=== PATIENT | female | born 1995 | race Caucasian/White ===

== ENCOUNTER → 2018-04-26 | Outpatient (CLI) | payer BC ==
--- NOTE | 2018-04-26 16:36 | Diagnostic Imaging Report ---
INDICATION: survey. TECHNIQUE: Multiple Real-time grayscale images were obtained over the gravid uterus. COMPARISON: None. FINDINGS: There is a single live fetus in cephalic presentation. The heart rate was recorded at 161 BPM. The placenta is posterior. The amniotic fluid volume is normal. The survey demonstrates the kidneys, bladder, and stomach to be unremarkable. The brain is unremarkable. There is a three-vessel cord with normal insertion. The spine is unremarkable. The four-chamber heart view is not well visualized on today's study. Biometrical measurements are as follows: Biparietal 5.14 cm, age 21 weeks 5 days. Head circumference 19.09 cm, age 21 weeks 3 days. Abdominal circumference 15.63 cm, age 20 weeks 6 days. Femur length 3.67 cm, age 21 weeks 5 days. Sonographic estimate age: 21 weeks 3 days. Sonographic estimated date of delivery: 09/03/18. Estimated Weight: 408 gm (+/- 60 gm). LMP percentile: 80%. heart rate: 161 beats per minute. number: 1 of 1. IMPRESSION: There is a single live IUP at 21 weeks 3 days gestational age. The estimated date of confinement sonographically is 09/03/2018. The survey is unremarkable although the four-chamber heart view is not well seen on today's study. Followup could be performed. Dictated by: Dictated on workstation # [id number]
== END ==
LOC: RAD 14:00
PROVIDERS: ATTEND Obstetrics & Gynecology
DX: Z36.89 Encounter for other specified antenatal screening (principal); Z3A.21 21 weeks gestation of pregnancy
CPT/HCPCS: 76805

== ENCOUNTER 2018-05-06 17:20 | Outpatient (CLI) | payer BC ==
[~2018-05-06] VITALS: Ht 177.8 cm; Wt 87.1 kg
--- NOTE | 2018-05-06 17:25 | NUR ---
LORNA SALGUERO presented to unit via ambulation from ED, with c/o ABD PAIN. LORNA SALGUERO weighed, gowned, voided, and to bed. EFHM and TOCO applied, VS taken. LORNA SALGUERO oriented to bed controls, call light, TV, heat, and A/C controls.
[2018-05-06 18:15] VITALS: BP 121/65
[2018-05-06 18:24] LABS: BILIRUBIN,URINE NEGATIVE (NEGATIVE); CLARITY,URINE SLIGHTLY CLOUDY; COLOR,URINE YELLOW; GLUCOSE, URINE (UA) NEGATIVE (NEGATIVE); KETONES,URINE NEGATIVE (NEGATIVE); LEUKOCYTE ESTERASE ,URINE 2+ (NEGATIVE); NITRITE,URINE NEGATIVE (NEGATIVE); PH,URINE 6 (5-9); PROTEIN,URINE NEGATIVE (NEGATIVE); UROBILINOGEN,URINE NORMAL (NORMAL)
--- NOTE | 2018-05-06 18:30 | NUR ---
FHR baseline 135, accelerations noted, occasional variables. Overall reassuring for 22 weeks gestation. No ctx or irritability noted.
[2018-05-06 18:33] LABS: BACTERIA,URINE TRACE /HPF; WBC,URINE 0-2 /HPF
--- NOTE | 2018-05-06 18:53 | NUR ---
Dr. Fernandez called, notified of pt arrival, c/o pain under right rib cage. notified of VS, FHR, ctx pattern, UA, other assessment findings. Orders for Tylenol #3, then D/C pt to home.
[2018-05-06] MEDS ORDERED: APAP 300 MG/CODEINE 30 MG (TYLENOL #3) TAB PO ONE ×2 (19:00→19:45)
[2018-05-06 20:10] VITALS: BP 121/65
--- NOTE | 2018-05-06 20:10 | NUR ---
Pt given PO medication and discharge instructions. Pt discharged to home at this time
== END 2018-05-06 20:10 | disposition home or self-care (01) ==
LOC: WSo 17:20
PROVIDERS: ATTEND Obstetrics & Gynecology
DX: O99.89 Other specified diseases and conditions complicating pregnancy, childbirth and the puerperium (principal); R10.11 Right upper quadrant pain; Z3A.22 22 weeks gestation of pregnancy
CPT/HCPCS: 81000; 99213

== ENCOUNTER 2018-05-24 12:18 | Emergency (ER) | payer BC ==
[~2018-05-24] VITALS: Ht 177.8 cm; Wt 85.7 kg
--- NOTE | 2018-05-24 12:32 | ED Abdominal Pain ---
General Chief Complaint: nausea, vomiting, brief LUQ pain Stated Complaint: VOMITING; ABD PAIN Source of Information: Patient Exam Limitations: No Limitations History of Present Illness Date Seen by Provider: May 24, 2018 Time Seen by Provider: 12:32 23 y/o 6 months presents with N/V x5 today. Started after eating this morning, never had morning sickness issues. Had intermittent LUQ abd pain around the time of the vomiting. Told previously that she may have GB issues. She is feeling the baby move. Allergies and Home Medications Allergies Coded Allergies: No Known Drug Allergies (Unverified , 05/06/18) Home Medications No Active Prescriptions or Reported Meds Patient Home Medication List Home Medication List Reviewed: Yes Review of Systems Review of Systems Constitutional: No chills, No fever; weakness EENTM: No Blurred Vision, No Double Vision Respiratory: Denies Cough, Denies Shortness of Air Cardiovascular: Denies Chest Pain, Denies Edema Gastrointestinal: See HPI, Abdominal Pain (LUQ); Denies Diarrhea; Nausea, Vomiting Genitourinary: Denies Burning, Denies Drainage, Denies Frequency, Denies Flank Pain, Denies Hematuria Musculoskeletal: No back pain, No joint pain, No muscle pain Skin: No lesions, No rash Psychiatric/Neurological: Denies Numbness, Denies Tingling Past Ybsmwiu-Okrgya-Bimljo Hx Past Med/Social Hx: Reviewed Nursing Past Med/Soc Hx Patient Social History Recent Foreign Travel: No Immunizations Up To Date Date of Influenza Vaccine: Feb 03, 2018 Physical Exam Vital Signs Vital Signs - First Documented 05/24/18 12:28 Temp 97.5 Pulse 87 Resp 18 B/P (MAP) 119/57 (77) Pulse Ox 97 O2 Delivery Room Air Capillary Refill : Height/Weight/BMI Height: 5'10.00" Weight: 192lbs. 0.0oz. 87.785207as; 27.6 BMI Method: General Appearance: WD/WN, no apparent distress HEENT: PERRL/EOMI, other (mildly dry MM) Neck: non-tender, full range of motion, normal inspection Respiratory: chest non-tender, lungs clear, normal breath sounds, no respiratory distress, no accessory muscle use Cardiovascular: normal peripheral pulses, regular rate, rhythm, no edema, no gallop, no JVD, no murmur Gastrointestinal: normal bowel sounds, non tender, soft, no organomegaly, no pulsatile mass, mass (gravid uterus, FHT 120-130) Extremities: normal range of motion, no pedal edema Back: no CVA tenderness, no vertebral tenderness Skin: normal color, warm/dry Progress/Results/Core Measures Results/Orders Lab Results Laboratory Tests Test 05/24/18 12:30 05/24/18 12:45 Range/Units Urine Color YELLOW Urine Clarity CLEAR Urine pH 6.0 5-9 Urine Specific [place] 1.020 1.016-1.022 Urine Protein NEGATIVE NEGATIVE Urine Glucose (UA) NEGATIVE NEGATIVE Urine Ketones 3+ H NEGATIVE Urine Nitrite NEGATIVE NEGATIVE Urine Bilirubin NEGATIVE NEGATIVE Urine Urobilinogen 0.2 NORMAL MG/DL Urine Leukocyte Esterase NEGATIVE NEGATIVE Urine RBC (Auto) NEGATIVE NEGATIVE Urine RBC NONE /HPF Urine WBC 0-2 /HPF Urine Squamous Epithelial Cells 5-10 /HPF Urine Crystals NONE /LPF Urine Bacteria TRACE /HPF Urine Casts NONE /LPF Urine Mucus MODERATE H /LPF Urine Culture Indicated NO Urine Test POSITIVE NEGATIVE White Blood Count 13.1 H 4.3-11.0 10^3/uL Red Blood Count 4.29 L 4.35-5.85 10^6/uL Hemoglobin 13.4 11.5-16.0 G/DL Hematocrit 39 35-52 % Mean Corpuscular Volume 90 80-99 FL Mean Corpuscular Hemoglobin 31 25-34 PG Mean Corpuscular Hemoglobin Concent 35 32-36 G/DL Red Cell Distribution Width 12.9 10.0-14.5 % Platelet Count 232 130-400 10^3/uL Mean Platelet Volume 10.4 7.4-10.4 FL Neutrophils (%) (Auto) 89 H 42-75 % Lymphocytes (%) (Auto) 6 L 12-44 % Monocytes (%) (Auto) 4 0-12 % Eosinophils (%) (Auto) 0 0-10 % Basophils (%) (Auto) 1 0-10 % Neutrophils # (Auto) 11.6 H 1.8-7.8 X 10^3 Lymphocytes # (Auto) 0.8 L 1.0-4.0 X 10^3 Monocytes # (Auto) 0.5 0.0-1.0 X 10^3 Eosinophils # (Auto) 0.1 0.0-0.3 10^3/uL Basophils # (Auto) 0.0 0.0-0.1 10^3/uL Neutrophils % (Manual) 82 % Lymphocytes % (Manual) 5 % Monocytes % (Manual) 4 % Eosinophils % (Manual) 0 % Basophils % (Manual) 0 % Band Neutrophils 9 % Sodium Level 139 135-145 MMOL/L Potassium Level 3.6 3.6-5.0 MMOL/L Chloride Level 102 98-107 MMOL/L Carbon Dioxide Level 13 L 21-32 MMOL/L Anion Gap 24 H 5-14 MMOL/L Blood Urea Nitrogen 9 7-18 MG/DL Creatinine 0.68 0.60-1.30 MG/DL Estimat Glomerular Filtration Rate > 60 BUN/Creatinine Ratio 13 Glucose Level 94 70-105 MG/DL Calcium Level 9.1 8.5-10.1 MG/DL Corrected Calcium 9.3 8.5-10.1 MG/DL Total Bilirubin 0.5 0.1-1.0 MG/DL Aspartate Amino Transf (AST/SGOT) 18 5-34 U/L Alanine Aminotransferase (ALT/SGPT) 15 0-55 U/L Alkaline Phosphatase 108 40-136 U/L Total Protein 6.8 6.4-8.2 GM/DL Albumin 3.8 3.2-4.5 GM/DL Lipase 24 8-78 U/L My Orders Orders - VANESSA CAREY MD Hcg,Qualitative Urine (05/24/18 12:26) Ua Culture If Indicated (05/24/18 12:26) Comprehensive Metabolic Panel (05/24/18 12:38) Lipase (05/24/18 12:38) Saline Lock/Iv-Start (05/24/18 12:38) Cbc With Automated Diff (05/24/18 12:38) Ns Iv 1000 Ml (Sodium Chloride 0.9%) (05/24/18 12:45) Ondansetron Injection (Zofran Injectio (05/24/18 12:45) Ns Iv 1000 Ml (Sodium Chloride 0.9%) (05/24/18 12:40) Manual Differential (05/24/18 12:45) Ondansetron Injection (Zofran Injectio (05/24/18 15:30) Promethazine Injection (Phenergan Injec (05/24/18 16:00) Diphenhydramine Injection (Benadryl Inje (05/24/18 16:00) D5 Ns 1000 Ml Iv Solution (Dextrose 5%/0 (05/24/18 16:00) Diphenhydramine Injection (Benadryl Inje (05/24/18 16:15) Medications Given in ED Current Medications Medications Dose Ordered Sig/Kendell Route Start Time Stop Time Status Last Admin Dose Admin Diphenhydramine HCl 25 mg ONCE ONCE IVP 05/24/18 16:15 05/24/18 16:16 DC 05/24/18 16:11 25 MG Ondansetron HCl 4 mg ONCE ONCE IVP 05/24/18 12:45 05/24/18 12:46 DC 05/24/18 12:55 4 MG Ondansetron HCl 4 mg ONCE ONCE IVP 05/24/18 15:30 05/24/18 15:31 DC 05/24/18 15:27 4 MG Promethazine HCl 25 mg ONCE ONCE IVP 05/24/18 16:00 05/24/18 16:01 DC 05/24/18 16:02 25 MG Vital Signs/I&O 05/24/18 12:28 Temp 97.5 Pulse 87 Resp 18 B/P (MAP) 119/57 (77) Pulse Ox 97 O2 Delivery Room Air Progress Progress Note #1: Progress Note FHT 120-130. Treat with NS bolus 1 L, Zofran 4 mg IVP x1, check labs. Progress Note #2: Time: 15:20 Progress Note feeling "queazy" has tolerated PO challenge, will repeat zofran. Progress Note #3: Time: 15:47 Progress Note vomiting. Treat with Phenergan IV, benadryl IV, D5 NS. Progress Note #4: Time: 16:50 Progress Note Nausea has improved. Will attempt PO challenge. Progress Note #5: Time: 17:15 Progress Note feeling better, tolerates PO, would like to go home. Strict return precautions discussed. Departure Impression Primary Impression: Nausea and vomiting Additional Impression: Disposition: 01 HOME, SELF-CARE Condition: Improved Departure-Patient Inst. Decision time for Depature: 17:17 Referrals: NO,LOCAL PHYSICIAN (PCP/Family) Primary Care Physician Patient Instructions: Nausea and Vomiting of (DC) Add. Discharge Instructions: All discharge instructions reviewed with patient and/or family. Voiced understanding. Scripts Promethazine HCl (Phenergan) 25 Mg Supp.rect 25 MG RC Q6H PRN for NAUSEA/VOMITING-2ND LINE, #14 SUPP.RECT 0 Refills Prov: VANESSA CAREY MD 05/24/18 Ondansetron (Ondansetron Odt) 4 Mg Tab.rapdis 4 MG PO Q6H PRN for NAUSEA/VOMITING-1ST LINE, #14 TAB 0 Refills Prov: VANESSA CAREY MD 05/24/18 VANESSA CAREY MD May 24, 2018 12:32
[2018-05-24] MEDS ORDERED: NS IV 1000 ML 1,000 ML ONE (12:40)
[2018-05-24] MEDS ORDERED: NS IV 1000 ML 1,000 ML IV SCH (12:45)
[2018-05-24] MEDS ORDERED: ONDANSETRON 4 MG/2 ML (SDV) Z0FRAN IVP ONE ×2 (12:45→15:30)
[2018-05-24 13:04] LABS: HEMATOCRIT 39 % (35-52); HEMOGLOBIN 13.4 G/DL (11.5-16.0); MEAN CORPUSCULAR HEMOGLOBIN 31 PG (25-34); MEAN CORPUSCULAR HGB CONC 35 G/DL (32-36); MEAN CORPUSCULAR VOLUME 90 FL (80-99); RED CELL DISTRIBUTION WIDTH 12.9 % (10.0-14.5); WHITE BLOOD COUNT 13.1 10^3/uL (4.3-11.0)
[2018-05-24 13:05] LABS: BASOPHILS % (AUTO) 1 % (0-10); EOSINOPHILS # (AUTO) 0.1 10^3/uL (0.0-0.3); EOSINOPHILS % (AUTO) 0 % (0-10); LYMPHOCYTES # (AUTO) 0.8 X 10^3 (1.0-4.0); LYMPHOCYTES % (AUTO) 6 % (12-44); MEAN PLATELET VOLUME 10.4 FL (7.4-10.4); MONOCYTES # (AUTO) 0.5 X 10^3 (0.0-1.0); MONOCYTES % (AUTO) 4 % (0-12); NEUTROPHILS # (AUTO) 11.6 X 10^3 (1.8-7.8); NEUTROPHILS % (AUTO) 89 % (42-75); PLATELET COUNT 232 10^3/uL (130-400)
[2018-05-24 13:32] LABS: POTASSIUM 3.6 MMOL/L (3.6-5.0); SODIUM 139 MMOL/L (135-145)
[2018-05-24 13:33] LABS: ALANINE AMINOTRANSFERASE 15 U/L (0-55); ALKALINE PHOSPHATASE 108 U/L (40-136); BILIRUBIN,TOTAL 0.5 MG/DL (0.1-1.0); BUN/CREATININE RATIO 13; CALCIUM 9.1 MG/DL (8.5-10.1); CARBON DIOXIDE 13 MMOL/L (21-32); CHLORIDE 102 MMOL/L (98-107); CREATININE SERUM 0.68 MG/DL (0.60-1.30); GFR ESTIMATED > 60; GLUCOSE 94 MG/DL (70-105)
[2018-05-24 13:34] LABS: ALBUMIN 3.8 GM/DL (3.2-4.5); LIPASE 24 U/L (8-78); TOTAL PROTEIN 6.8 GM/DL (6.4-8.2)
[2018-05-24 13:46] LABS: BAND NEUTROPHILS 9 %; BASOPHILS % (MANUAL) 0 %; EOSINOPHILS % (MANUAL) 0 %; LYMPHOCYTES % (MANUAL) 5 %; MONOCYTES % (MANUAL) 4 %; NEUTROPHILS % (MANUAL) 82 %
[2018-05-24 14:15] LABS: CLARITY,URINE CLEAR; COLOR,URINE YELLOW; GLUCOSE, URINE (UA) NEGATIVE (NEGATIVE); PROTEIN,URINE NEGATIVE (NEGATIVE)
[2018-05-24 14:16] LABS: BACTERIA,URINE TRACE /HPF; BILIRUBIN,URINE NEGATIVE (NEGATIVE); KETONES,URINE 3+ (NEGATIVE); LEUKOCYTE ESTERASE ,URINE NEGATIVE (NEGATIVE); NITRITE,URINE NEGATIVE (NEGATIVE); UROBILINOGEN,URINE 0.2 MG/DL (NORMAL); WBC,URINE 0-2 /HPF
[2018-05-24 14:17] LABS: HCG,QUALITATIVE URINE POSITIVE (NEGATIVE)
[2018-05-24] MEDS ORDERED: D5 NS 1000 ML IV SOLUTION 1,000 ML IV SCH (16:00)
[2018-05-24] MEDS ORDERED: diphenhydrAMINE 50 MG/ML INJ (BENADRYL) IM ONE (16:00)
[2018-05-24] MEDS ORDERED: PROMETHAZINE INJ 25 MG/ML (PHENERGAN) AMP IVP ONE (16:00)
[2018-05-24] MEDS ORDERED: diphenhydrAMINE 50 MG/ML INJ (BENADRYL) IVP ONE (16:15)
[2018-05-24] MEDS ORDERED: PROM25SU43 RC (17:20)
[2018-05-24] MEDS ORDERED: ONDA4TAB11 PO (17:20)
[2018-05-24 17:32] VITALS: BP 123/81
== END 2018-05-24 17:30 | disposition home or self-care (01) ==
LOC: EDUNIT# 12:18 → ER FS 12:21
DX: O21.9 Vomiting of pregnancy, unspecified (principal); Z3A.00 Weeks of gestation of pregnancy not specified
CPT/HCPCS: 36415; 80053; 81000; 83690; 84703; 85007; 85027

== ENCOUNTER 2018-09-03 07:36 | Outpatient (CLI) | payer BC ==
[~2018-09-03] VITALS: Ht 177.8 cm; Wt 91.6 kg
--- NOTE | 2018-09-03 07:25 | NUR ---
LORNA SALGUERO presented to unit via AMBULATORY from ED, accompanied by S/O, with c/o POSS RUPTURED MEMBRANES. LORNA SALGUERO weighed, gowned, voided, and to bed. EFHM and TOCO applied, VS taken. LORNA SALGUERO oriented to bed controls, call light, TV, heat, and A/C controls.
[~2018-09-03 07:36] MED LIST: ONDA4TAB11 PO; PROM25SU43 RC
[2018-09-03 07:40] VITALS: BP 126/77
--- NOTE | 2018-09-03 07:45 | NUR ---
Dr. Mahoney on unit. Notified of pt arrival, presenting for suspected SROM at home around [id number] this am. updated on pt history, FHR, ctx pattern, SVE, nitrazine, VS. Orders rec'd for wet prep, fern test.
[2018-09-03] MEDS ORDERED: PREN-148 PO (07:49)
[2018-09-03 07:56] LABS: BILIRUBIN,URINE NEGATIVE (NEGATIVE); CLARITY,URINE VERY CLOUDY; COLOR,URINE YELLOW; GLUCOSE, URINE (UA) NEGATIVE (NEGATIVE); KETONES,URINE NEGATIVE (NEGATIVE); LEUKOCYTE ESTERASE ,URINE 1+ (NEGATIVE); NITRITE,URINE NEGATIVE (NEGATIVE); PH,URINE 6.5 (5-9); PROTEIN,URINE NEGATIVE (NEGATIVE); UROBILINOGEN,URINE NORMAL (NORMAL)
[2018-09-03 08:06] LABS: BACTERIA,URINE MODERATE /HPF
--- NOTE | 2018-09-03 08:48 | NUR ---
Dr. Mahoney called and , wet prep, fern results reported, updated on continued ctx's. Orders rec'd to started IV with D5LR @ 250ml/hr and CBC.
[2018-09-03] MEDS ORDERED: D5 LR IV SOLUTION 1,000 ML IV SCH (09:00)
[2018-09-03 09:17] LABS: BASOPHILS % (AUTO) 0 % (0-10); EOSINOPHILS # (AUTO) 0.1 10^3/uL (0.0-0.3); EOSINOPHILS % (AUTO) 2 % (0-10); HEMATOCRIT 37 % (35-52); HEMOGLOBIN 12.1 G/DL (11.5-16.0); LYMPHOCYTES # (AUTO) 1.7 X 10^3 (1.0-4.0); LYMPHOCYTES % (AUTO) 20 % (12-44); MEAN CORPUSCULAR HEMOGLOBIN 27 PG (25-34); MEAN CORPUSCULAR HGB CONC 33 G/DL (32-36); MEAN CORPUSCULAR VOLUME 82 FL (80-99); MEAN PLATELET VOLUME 11.7 FL (7.4-10.4); MONOCYTES # (AUTO) 0.8 X 10^3 (0.0-1.0); MONOCYTES % (AUTO) 9 % (0-12); NEUTROPHILS % (AUTO) 69 % (42-75); PLATELET COUNT 217 10^3/uL (130-400); RED CELL DISTRIBUTION WIDTH 14.1 % (10.0-14.5); WHITE BLOOD COUNT 8.7 10^3/uL (4.3-11.0)
[2018-09-03 09:20] VITALS: BP 119/79
--- NOTE | 2018-09-03 10:05 | NUR ---
Dr. Mahoney called and updated on latest SVE, ctx pattern, pt c/o stronger ctx. Orders rec'd for regular diet, keep monitoring for now and continue IV fluids.
[2018-09-03 12:10] VITALS: BP 124/77
--- NOTE | 2018-09-03 13:22 | NUR ---
Dr. Mahoney called with update on SVE, ctx pattern, IV fluids complete, pt feeling better and desires to go home if not in true labor. Discharge orders rec'd.
--- NOTE | 2018-09-03 13:40 | NUR ---
Discharge instructions explained to pt with copy provided to pt, emphasis on labor precautions. Pt verbalizes understanding of instructions and signs to verify. Denies questions or concerns at this time. Ambulates self off unit accompanied by S.O. to private vehicle with all personal belongings. NO s/s of distress noted.
[2018-09-05] MEDS ORDERED: Benzocaine/Menthol TP ×2 (22:20)
[2018-09-05] MEDS ORDERED: DOCU100C37 PO ×2 (22:20)
[2018-09-05] MEDS ORDERED: IBUP-844 PO ×2 (22:20)
[2018-09-05] MEDS ORDERED: DIBU30OI TOP ×2 (22:20)
[2018-09-05] MEDS ORDERED: ACHD5005 PO ×2 (22:20)
[2018-09-05] MEDS ORDERED: FERR325T18 PO ×2 (22:20)
--- NOTE | 2018-09-07 09:36 | Physician Query-Final Dx ---
CYNTHIA VO 09/07/18 0936: Clinic Account Progress/Dx Physician Query: Please give diagnosis Need dx and weeks of gestation. Date of Service Sep 03, 2018 at 07:36 YOMI STILL MD 09/07/18 1313: Clinic Account Progress/Dx DIAGNOSIS: Diagnosis false labor CYNTHIA VO Sep 07, 2018 09:36 YOMI STILL MD Sep 07, 2018 13:13
== END 2018-09-03 13:40 | disposition home or self-care (01) ==
LOC: WSo 07:36 → LDRP 07:36 → WSo 13:40
PROVIDERS: ATTEND Obstetrics & Gynecology
DX: O47.9 False labor, unspecified (principal)
CPT/HCPCS: 36415; 81000; 85025; 87088; 87210; 89060; 96360; 96361; 99214

== ENCOUNTER 2018-09-04 14:52 | Inpatient (IN) | payer BC, OTHER ==
[2018-09-04] VITALS (48 sets, daily range): BP systolic 119–147; BP diastolic 59–97
[~2018-09-04] VITALS: Ht 177.8 cm; Wt 91.6 kg
--- NOTE | 2018-09-04 14:50 | NUR ---
LORNA SALGUERO presented to unit via AMBULATORY from ED, accompanied by S/O AND VISITOR, with c/o CONTRACTIONS. LORNA SALGUERO weighed, gowned, voided, and to bed. EFHM and TOCO applied, VS taken. LORNA SALGUERO oriented to bed controls, call light, TV, heat, and A/C controls.
[~2018-09-04 14:52] MED LIST changes: +PREN-148 PO
[2018-09-04] MEDS: D5 LR IV SOLUTION 1,000 ML IV SCH ×2 (15:55→23:16)
[2018-09-04 16:07] LABS: BASOPHILS % (AUTO) 0 % (0-10); EOSINOPHILS # (AUTO) 0.1 10^3/uL (0.0-0.3); EOSINOPHILS % (AUTO) 1 % (0-10); HEMATOCRIT 36 % (35-52); LYMPHOCYTES # (AUTO) 1.8 X 10^3 (1.0-4.0); LYMPHOCYTES % (AUTO) 13 % (12-44); MEAN CORPUSCULAR HEMOGLOBIN 28 PG (25-34); MEAN CORPUSCULAR HGB CONC 33 G/DL (32-36); MEAN CORPUSCULAR VOLUME 82 FL (80-99); MEAN PLATELET VOLUME 11.4 FL (7.4-10.4); MONOCYTES # (AUTO) 1.3 X 10^3 (0.0-1.0); MONOCYTES % (AUTO) 9 % (0-12); NEUTROPHILS # (AUTO) 10.7 X 10^3 (1.8-7.8); NEUTROPHILS % (AUTO) 77 % (42-75); PLATELET COUNT 190 10^3/uL (130-400); RED CELL DISTRIBUTION WIDTH 13.8 % (10.0-14.5); WHITE BLOOD COUNT 13.8 10^3/uL (4.3-11.0)
[2018-09-04] MEDS ORDERED: SUFENTA 0.6MCG/ML BUPIVA 0.125 100 ML ONE (16:22)
[2018-09-04] MEDS ORDERED: fentaNYL INJECTION 100 MCG/2 ML AMP ONE (17:12)
[2018-09-04] MEDS ORDERED: OXYTOCIN/NORMAL SALINE 500 ML IV SCH (17:22)
[2018-09-04] MEDS ORDERED: LACTATED RINGERS 1,000 ML IV ONE (17:26)
[2018-09-04] MEDS ORDERED: NALOXONE 0.4 MG/ML 1 ML (NARCAN) VIAL IV PRN ×2 (17:30)
[2018-09-04] MEDS ORDERED: ONDANSETRON 4 MG/2 ML (SDV) Z0FRAN IV PRN (17:30)
[2018-09-04] MEDS ORDERED: METOCLOPRAMIDE INJ 10 MG/2 ML (REGLAN) IV PRN (17:30)
[2018-09-04] MEDS ORDERED: diphenhydrAMINE 50 MG/ML INJ (BENADRYL) IV PRN (17:30)
[2018-09-04] MEDS ORDERED: EPIDURAL (SUFENTA 0.6MCG/ML BUPIVA 0.125%) 100 ML BAG EPI PRN (17:30)
--- NOTE | 2018-09-04 18:33 | History & Physical-OB ---
OB - Chief Complaint & HPI Date/Time Date of Admission: Date of Admission: Sep 04, 2018 at 15:10 Date seen by a Provider: Sep 04, 2018 Time Seen by a Provider: 17:00 Chief Complaint/History OB-Reason for Admission/Chief: Onset of Labor Hx : 1 Hx Para: 0 Expected Date of Delivery: Sep 09, 2018 Gestational Age in Weeks: 39 Gestational Age in Days: 2 Admission Nurse Assessment Rev: Yes History of Labs see prenatals Allergies and Home Medications Allergies Coded Allergies: No Known Drug Allergies (Unverified , 05/06/18) Home Medications Vit #76/Iron,Carb/FA 1 Each Tablet, 1 EACH PO DAILY, (Reported) Patient Home Medication List Home Medication List Reviewed: Yes OB - History Hx of Present Care: Yes Ultrasounds: Normal mid trimester US Obstetrical Complications: None Medical Complications: None Obstetrical History Hx : 1 Hx Para: 0 Hx Total # of Abortions (Spona: 0 Delivery History Adverse Rxn to Tranfusion: No (N/A) Patient Past Medical History n/a Social History/Family History Recent Infectious Disease Expo: No Alcohol Use: Denies Use Recreational Drug Use: No 2nd Hand Smoke Exposure: No Immunizations Hepatitis A: No Hepatitis B: Yes Date of Influenza Vaccine: Feb 03, 2018 OB - Admission Exam Physical Exam Vitals: Vital Signs 09/04/18 09/04/18 17:21 17:46 Temp 99.6 Pulse 95 Resp 18 B/P (MAP) 133/82 (99) Pulse Ox 98 O2 Delivery Room Air HEENT: NCAT Heart: Rhythm Normal Lungs: Clear Abdomen: Gravid Extremities: Normal Reflexes: Normal Cervical Dilatation: 4cm Effacement: 75% Station: -1 Membranes: Intact Heart Rate: 130's Accelerations: Accelerations Present Decelerations: Early Decelerations Short Term Variability: Present Fpc Variability: Average (6-25) Contractions on Admission: < 5 Minutes Apart Intensity: Mild Labs Laboratory Tests Test 09/04/18 15:55 Range/Units White Blood Count 13.8 H 4.3-11.0 10^3/uL Red Blood Count 4.37 4.35-5.85 10^6/uL Hemoglobin 12.0 11.5-16.0 G/DL Hematocrit 36 35-52 % Mean Corpuscular Volume 82 80-99 FL Mean Corpuscular Hemoglobin 28 25-34 PG Mean Corpuscular Hemoglobin Concent 33 32-36 G/DL Red Cell Distribution Width 13.8 10.0-14.5 % Platelet Count 190 130-400 10^3/uL Mean Platelet Volume 11.4 H 7.4-10.4 FL Neutrophils (%) (Auto) 77 H 42-75 % Lymphocytes (%) (Auto) 13 12-44 % Monocytes (%) (Auto) 9 0-12 % Eosinophils (%) (Auto) 1 0-10 % Basophils (%) (Auto) 0 0-10 % Neutrophils # (Auto) 10.7 H 1.8-7.8 X 10^3 Lymphocytes # (Auto) 1.8 1.0-4.0 X 10^3 Monocytes # (Auto) 1.3 H 0.0-1.0 X 10^3 Eosinophils # (Auto) 0.1 0.0-0.3 10^3/uL Basophils # (Auto) 0.0 0.0-0.1 10^3/uL OB - Assessment/Plan/Diagnosis Assessment Assessment: active labor Admission Dx 23 yo @ 39.2 weeks Active labor GBS neg Admission Status: Inpatient Order (span 2 midnights) Reason for Inpatient Admission: Term active labor Plan Plan: Expectant Management BRITTANY MCCRACKEN DO Sep 04, 2018 18:33
[2018-09-04] MEDS ORDERED: ONDANSETRON 4 MG/2 ML (SDV) Z0FRAN ONE (20:02)
[2018-09-04] MEDS ORDERED: LIDOCAINE PF 2% 5 ML (XYLOCAINE) VIAL ONE (20:09)
[2018-09-04] MEDS ORDERED: BUPIVACAINE 0.25% 30 ML (SENSORCAINE) VIAL ONE (20:31)
[2018-09-04] MEDS ORDERED: PROMETHAZINE INJ 25 MG/ML (PHENERGAN) AMP ONE (21:49)
[2018-09-04] MEDS ORDERED: CATHETER FLUSH 10 ML SYR IV SCH (22:00)
[2018-09-04] MEDS ORDERED: PROMETHAZINE INJ 25 MG/ML (PHENERGAN) AMP IVP ONE (22:00)
[2018-09-05] VITALS (19 sets, daily range): BP systolic 111–159; BP diastolic 55–100
[2018-09-05] MEDS ORDERED: BUPIVACAINE 0.25% 30 ML (SENSORCAINE) VIAL ONE (02:56)
[2018-09-05] MEDS ORDERED: OXYTOCIN/NORMAL SALINE 500 ML IV SCH (04:21)
--- NOTE | 2018-09-05 04:28 | OB Labor & Delivery Record ---
L&D History Date of Service Date of Service: Sep 05, 2018 History Expected Date of Delivery: Sep 09, 2018 Gestational Age in Weeks: 39 Hx : 1 Hx Para: 0 Complications Events: Routine care Operative Indications (Cesarea: N/A-Vaginal Delivery Intrapartal Events: None L&D Stage1 Stage One Onset of Labor - Date: Sep 05, 2018 Monitors and Tracing Monitor Mode: External Heart Rate: 125 Station: -1 Chcf Variability: Average (6-10) Short Term Variability: Present Presentation: Vertex Vital Signs VS - Last 72 Hours, by Label 09/04/18 09/04/18 09/04/18 09/04/18 14:56 17:01 17:09 17:11 Temp 97.8 Pulse 75 98 74 90 Resp 18 18 18 18 B/P (MAP) 136/85 (102) 145/82 (103) 128/77 (94) 126/80 (95) Pulse Ox 97 99 O2 Delivery Room Air Room Air Room Air Room Air 09/04/18 09/04/18 09/04/18 09/04/18 17:15 17:19 17:21 17:24 Temp 99.6 Pulse 81 79 75 Resp 18 18 18 B/P (MAP) 128/75 (92) 127/77 (94) 125/74 (91) 124/74 (91) Pulse Ox 99 99 O2 Delivery Room Air Room Air Room Air 09/04/18 09/04/18 09/04/18 09/04/18 17:27 17:31 17:34 17:37 Pulse 91 114 93 89 Resp 18 18 18 18 B/P (MAP) 124/75 (91) 126/76 (93) 128/78 (95) 128/76 (93) Pulse Ox 99 98 98 O2 Delivery Room Air Room Air Room Air Room Air 09/04/18 09/04/18 09/04/18 09/04/18 17:40 17:43 17:46 17:50 Temp 99.8 Pulse 90 75 95 92 Resp 18 18 18 18 B/P (MAP) 133/73 (93) 130/79 (96) 133/82 (99) 135/84 (101) Pulse Ox 98 98 98 O2 Delivery Room Air Room Air Room Air Room Air 09/04/18 09/04/18 09/04/18 09/04/18 18:07 18:20 18:30 18:33 Pulse 95 82 95 74 Resp 18 18 18 18 B/P (MAP) 124/86 (99) 128/70 (89) 126/64 (84) 131/65 (87) Pulse Ox 98 84 84 99 O2 Delivery Room Air Room Air Room Air Room Air 09/04/18 09/04/18 09/04/18 09/04/18 18:36 18:39 18:42 18:45 Pulse 89 77 80 85 Resp 18 18 18 18 B/P (MAP) 127/65 (85) 128/72 (90) 122/66 (84) 122/64 (83) Pulse Ox 97 O2 Delivery Room Air Room Air Room Air Room Air 09/04/18 09/04/18 09/04/18 09/04/18 18:48 18:51 18:54 18:57 Pulse 91 106 106 86 Resp 18 18 18 18 B/P (MAP) 122/69 (86) 127/72 (90) 127/72 (90) 132/79 (96) Pulse Ox 98 98 O2 Delivery Room Air Room Air Room Air Room Air 09/04/18 09/04/18 09/04/18 09/04/18 19:00 19:15 19:30 19:45 Temp 98.4 Pulse 88 88 108 102 Resp 18 18 18 18 B/P (MAP) 127/78 (94) 119/59 (79) 145/97 (113) 144/73 (96) O2 Delivery Room Air Room Air Room Air Room Air 09/04/18 09/04/18 09/04/18 09/04/18 20:00 20:15 20:30 20:45 Pulse 86 72 73 76 Resp 18 18 18 18 B/P (MAP) 140/67 (91) 123/69 (87) 137/77 (97) 131/68 (89) Pulse Ox 100 100 100 O2 Delivery Room Air Room Air Room Air Room Air 09/04/18 09/04/18 09/04/18 09/04/18 21:00 21:15 21:30 21:45 Pulse 90 76 78 85 Resp 18 18 18 18 B/P (MAP) 141/64 (89) 131/70 (90) 127/67 (87) 136/75 (95) Pulse Ox 100 98 97 97 O2 Delivery Room Air Room Air Room Air Room Air 09/04/18 09/04/18 09/04/18 09/04/18 22:00 22:15 22:30 22:45 Pulse 81 100 85 86 Resp 18 18 18 18 B/P (MAP) 130/65 (86) 147/73 (97) 131/82 (98) 143/71 (95) Pulse Ox 97 100 100 100 O2 Delivery Room Air Room Air Room Air Room Air 09/04/18 09/04/18 09/04/18 09/04/18 23:00 23:15 23:30 23:45 Pulse 86 96 90 108 Resp 18 18 18 18 B/P (MAP) 130/74 (92) 133/71 (91) 135/77 (96) 136/80 (98) Pulse Ox 100 100 O2 Delivery Room Air Room Air Room Air Room Air 09/05/18 09/05/18 09/05/18 09/05/18 00:00 00:15 00:30 00:45 Temp 100.4 Pulse 80 75 77 73 Resp 18 18 18 18 B/P (MAP) 133/77 (95) 133/75 (94) 136/76 (96) 148/71 (96) O2 Delivery Room Air Room Air Room Air Room Air 09/05/18 09/05/18 09/05/18 09/05/18 01:00 01:15 01:30 01:45 Pulse 94 Resp 18 18 18 18 B/P (MAP) 125/61 (82) O2 Delivery Room Air Room Air Room Air Room Air 09/05/18 09/05/18 09/05/18 02:00 02:15 02:30 Pulse 79 84 103 Resp 18 18 18 B/P (MAP) 132/82 (99) 158/86 (110) 159/93 (115) O2 Delivery Room Air Room Air Room Air Rupture of Membranes Spontaneous Ruture of Membrane: No Amniotic Membrane Rupture Time: 1744 Amniotic Membrane Fluid Desc.: Clear Vaginal Bleeding Description: Normal Show Induction/Anesthesia Epidural Cath Placement - Time: 1707 Progress/Notes Patient progressed to complete and +1 station with no other augmentation than AROM. Epidural pain control was not consistent. Pudendal block done with 10 mL of 0.25 percent marcaine bilaterally in usual fashion L&D Stage2 Stage Two Stage II Date: Sep 05, 2018 Monitors and Tracing Monitor Mode: External Heart Rate: 125 Monitor Accelerations: Uniform Chcf Variability: Average (6-10) Short Term Variability: Present Position: Right Occiput Anterior Presentation: Vertex Cord Descript/Complications Cord Vessel Description: 3 Vessels Delivery Type Infant Delivery Method: Spontaneous Vaginal Anterior Shoulder: Left Episiotomy/Perineal Laceration Laceraction(s)/Extensions: Yes Episiotomy Description: Midline Degree (describe repair) midline episiotomy repaired using 3-0 and 2-0 vicryl suture in usual fashion Condition of Delivery 1 minute Comment: 8 5 minute Comment: 9 Notes Live male infant weigth 8 lbs 11 oz Condition of Infant Condition of : Living Exam: No Observed Abnormalities Resuscitation Resuscitation: N/A - Spontaneous Resp L&D Stage3 Stage Three Stage III Date: Sep 05, 2018 Pictocin Pitocin Administration mu/min: 4 Pitocin ml/hr: 4 Pitocin Administration Comment: 30 mu wide open at delivery of placenta Placenta Delivery Placenta Delivery: Spontaneous Delivery Summary Summary Estimated blood loss (mL): 400 Attending at delivery: Brittany Mccracken DO Condition of Delivery Examined: Cervix Examined, Uterus Explored Post Hemorrhage: No Condition of Mother stable Condition of Infant (s) stable BRITTANY MCCRACKEN DO Sep 05, 2018 04:28
[2018-09-05] MEDS ORDERED: DIBUCAINE (NUPERCAINAL) 1% OINT 30 GM TOP PRN (04:30)
[2018-09-05] MEDS ORDERED: WITCH HAZEL(TUCKS) 40 EA JAR TOP PRN (04:30)
[2018-09-05] MEDS ORDERED: MEASLES,MUMPS,RUBELLA 1 EA INJ SQ ONE (04:30)
[2018-09-05] MEDS ORDERED: BENZOCAINE/MENTHOL (DERMOPLAST) 56 ML CAN TP PRN (04:30)
[2018-09-05] MEDS ORDERED: TETANUS,DIPTH,PERTUSS P/F (BOOSTRIX) 0.5 ML VIAL IM ONE (04:30)
[2018-09-05] MEDS ORDERED: HYDROcodone/APAP 5 MG/325 MG (LORTAB) TAB PO PRN (04:30)
--- NOTE | 2018-09-05 05:15 | NUR ---
Epidural cath removed, tip in tact, site wnl and left o/a. Asymptomatic per pt report. Pt up to bathroom, pericare pads changed. Pt unable to void at this time. No void since cath removal/delivery. Will cont to monitor output. Pt to room 309 pp dept via wc per this rn. Pt remains under this rns care.
--- NOTE | 2018-09-05 05:30 | NUR ---
Cold tray provided upon pt request, education on feeding, feeding log, sleeping, id band and clothing protocols. understanding voiced per parents. eagerly at this time. no ss distress noted. Patient denies needing pain medication at this time and will ring when motrin is desired.
[2018-09-05] MEDS ORDERED: CATHETER FLUSH 10 ML SYR IV SCH (06:00)
--- NOTE | 2018-09-05 06:30 | NUR ---
pt reports difficulty getting to feed, shield provided, diaper changed per for and handed to pt for feeding, nipple shield applied, latched with rhythmic sucking noted. will cont to monitor.
[2018-09-05] MEDS: PRENATAL VITAMIN 1 EA TAB PO SCH (09:18)
[2018-09-05] MEDS: FERROUS SULF 325 MG (IRON) TAB PO SCH (09:18)
[2018-09-05] MEDS: DOCUSATE SODIUM 100 MG (COLACE) CAP PO SCH ×2 (09:18→22:03)
--- NOTE | 2018-09-05 09:20 | NUR ---
THIS RN TO BEDSIDE, PT IN BED, RESTING. VS OBTAINED. INITIAL SHIFT ASSESSMENT COMPLETED; SEE INTERVENTION FOR FURTHER. MEDS GIVEN; SEE EMAR. PT REFUSING THE MOTRIN AT THIS TIME. S/O AT THE BEDSIDE. CALL LIGHT WITHIN REACH. POC FOR THE DAY REVIEWED, PT VERBALIZES UNDERSTANDING AND DENIES ANY NEEDS OR QUESTIONS AT THIS TIME.
[2018-09-05] MEDS: IBUPROFEN 600 MG (MOTRIN) TAB PO SCH ×4 (09:42→22:04)
--- NOTE | 2018-09-05 09:44 | NUR ---
MMR AND TDAP REFUSED ON EMAR PT DOES NOT QUALIFY OR NEED EITHER VACCINES.
--- NOTE | 2018-09-05 11:30 | NUR ---
THIS RN ROUNDING ON PT. PT IN BED. S/O AND VISITORS AT THE BEDSIDE. PT DENIES ANY NEEDS AT THIS TIME. STORK TABLE REMOVED FROM ROOM.
--- NOTE | 2018-09-05 13:10 | NUR ---
PT IN BED, HOLDING . PT VOICES THAT SHE JUST FINISHED FEEDING. S/O AT THE BEDSIDE. VS OBTAINED. PT DENIES ANY NEEDS OR PAIN AT THIS TIME. CALL LIGHT WITHIN REACH.
--- NOTE | 2018-09-05 15:21 | Anesthesia-Regional Post-Op ---
Regional Patient Condition Mental Status: Alert, Oriented x3 Circulation: Same as Pre-Op Headache: Absent Sensation: Full Recovery Motor Block: Absent Post Op Complications Complications None Follow Up Care/Instructions Patient Instructions None needed. Anesthesia/Patient Condition Patient is doing well, no complaints, stable vital signs, no apparent adverse anesthesia problems. LAY BESS DO Sep 05, 2018 15:21
--- NOTE | 2018-09-05 16:00 | NUR ---
PT UP TO THE BATHROOM. S/O AND INFANT AT THE BEDSIDE, NO NEEDS VOICED.
--- NOTE | 2018-09-05 16:45 | NUR ---
PT IN BED. VS OBTAINED. VISITORS AT THE BEDSIDE. IV DC'D; SEE INTERVENTION FOR FURTHER. NO NEEDS OR PAINS VOICED AT THIS TIME.
--- NOTE | 2018-09-05 18:45 | NUR ---
PT IN BED, FEEDING FINISHED BUT REMAINS FUSSY, PREPPING TO FEED AGAIN. NO NEEDS OR PAIN VOICED. CALL LIGHT WITHIN REACH.
--- NOTE | 2018-09-05 22:17 | Discharge Inst-Women's Service ---
Discharge Inst-Women's Serv Depart Medication/Instructions New, Converted or Re-Newed RX: RX on Chart Final Diagnosis PPD 1 NVD Consults/Follow Up Additional Follow Up: Yes Orders/Referrals Dr. Mccracken in 6 weeks Activity Activity: Activity as Tolerated Driving Instructions: No Driving for 1 Week NO SMOKING: NO SMOKING Nothing Inside Vagina: No Douching, No [place], No Tampons Diet Discharge Diet: No Restrictions Symptoms to Report to : Bleeding Excessive, Pain Increased, Fever Over 101 Degrees F, Vaginal Bleeding Increase, Questions/Concerns BRITTANY MCCRACKEN DO Sep 05, 2018 22:17
[2018-09-05] MEDS ORDERED: ACHD5005 PO ×2 (22:20)
[2018-09-05] MEDS ORDERED: DIBU30OI TOP ×2 (22:20)
[2018-09-05] MEDS ORDERED: FERR325T18 PO ×2 (22:20)
[2018-09-05] MEDS ORDERED: Benzocaine/Menthol TP ×2 (22:20)
[2018-09-05] MEDS ORDERED: DOCU100C37 PO ×2 (22:20)
[2018-09-05] MEDS ORDERED: IBUP-844 PO ×2 (22:20)
[2018-09-06 00:05] VITALS: BP 119/59
[2018-09-06 04:30] VITALS: BP 117/72
[2018-09-06 06:01] LABS: BASOPHILS % (AUTO) 0 % (0-10); EOSINOPHILS # (AUTO) 0.2 10^3/uL (0.0-0.3); EOSINOPHILS % (AUTO) 1 % (0-10); HEMATOCRIT 27 % (35-52); LYMPHOCYTES # (AUTO) 2.9 X 10^3 (1.0-4.0); LYMPHOCYTES % (AUTO) 21 % (12-44); MEAN CORPUSCULAR HEMOGLOBIN 28 PG (25-34); MEAN CORPUSCULAR HGB CONC 33 G/DL (32-36); MEAN CORPUSCULAR VOLUME 84 FL (80-99); MEAN PLATELET VOLUME 11.2 FL (7.4-10.4); MONOCYTES # (AUTO) 1.2 X 10^3 (0.0-1.0); MONOCYTES % (AUTO) 9 % (0-12); NEUTROPHILS # (AUTO) 9.5 X 10^3 (1.8-7.8); NEUTROPHILS % (AUTO) 69 % (42-75); PLATELET COUNT 165 10^3/uL (130-400); RED CELL DISTRIBUTION WIDTH 14.1 % (10.0-14.5); WHITE BLOOD COUNT 13.8 10^3/uL (4.3-11.0)
--- NOTE | 2018-09-06 07:46 | Postpartum Progress Note ---
Note Note Day # 1 Subjective: Patient is without complaints. Ambulating, voiding. Tolerating a regular diet without nausea or vomiting. Normal lochia. Pain is well controlled with oral pain medications. Objective: Physical Exam: General - Alert and oriented, no apparent distress Abdomen - Soft, appropriately tender to palpation, non-distended, fundus firm at umbilicus Extremities - no edema, negative Isaak's bilaterally Assessment: PPD 1 NVD Acute blood loss anemia Plan: Routine care. Encourage breast feeding. Encourage ambulation. Ferrous sulfate supplementation. Plan for discharge today Vitals - Labs Vital Signs - I&O Vital Signs Date Time Temp Pulse Resp B/P (MAP) Pulse Ox O2 Delivery O2 Flow Rate FiO2 09/06/18 04:30 97.1 78 18 117/72 (87) 97 Room Air 09/06/18 00:05 98.3 87 18 119/59 (79) 97 09/05/18 19:20 100.0 86 18 117/68 (84) 99 09/05/18 16:41 99.4 97 18 121/61 (81) 98 Room Air 09/05/18 13:09 99.7 86 18 115/62 (79) 98 Room Air 09/05/18 09:17 100.3 88 18 118/58 (78) 97 Room Air Labs Laboratory Tests 09/06/18 05:50: White Blood Count 13.8H, Red Blood Count 3.21L, Hemoglobin 9.0#L, Hematocrit 27L , Mean Corpuscular Volume 84, Mean Corpuscular Hemoglobin 28, Mean Corpuscular Hemoglobin Concent 33, Red Cell Distribution Width 14.1, Platelet Count 165, Mean Platelet Volume 11.2H, Neutrophils (%) (Auto) 69, Lymphocytes (%) (Auto) 21, Monocytes (%) (Auto) 9, Eosinophils (%) (Auto) 1, Basophils (%) (Auto) 0, Neutrophils # (Auto) 9.5H, Lymphocytes # (Auto) 2.9, Monocytes # (Auto) 1.2H, Eosinophils # (Auto) 0.2, Basophils # (Auto) 0.0 BRITTANY MCCRACKEN DO Sep 06, 2018 07:46
--- NOTE | 2018-09-06 08:00 | NUR ---
CARING FOR INFANT IN ROOM.
[2018-09-06 09:00] VITALS: BP 127/77
--- NOTE | 2018-09-06 09:00 | NUR ---
A.M. ASSESSMENT COMPLETED. VSS. WELL. GOOD INTERACTION NOTED.
[2018-09-06] MEDS: DOCUSATE SODIUM 100 MG (COLACE) CAP PO SCH (09:18)
[2018-09-06] MEDS: FERROUS SULF 325 MG (IRON) TAB PO SCH (09:18)
[2018-09-06] MEDS: IBUPROFEN 600 MG (MOTRIN) TAB PO SCH ×2 (09:18→15:38)
[2018-09-06] MEDS: PRENATAL VITAMIN 1 EA TAB PO SCH (09:18)
--- NOTE | 2018-09-06 10:00 | NUR ---
DR. GRAHAM HERE TO SEE INFANT. TALKING WITH PARENTS ABOUT NEED FOR SNS AND PHOTOTHERAPY.
--- NOTE | 2018-09-06 12:00 | NUR ---
DISCHARGE INSTRUCTIONS REVIEWED WITH COPY TO PT. STATES UNDERSTANDING OF ALL INSTRUCTIONS AND NEED TO F/U SCHEDULED AND NEEDED. RXS GIVEN TO PT TO HAVE A FAMILY MEMBER GET THEM FILLED. WILL NOT DISCHARGE UNTIL RXS ARE FILLED R/T PT BECOMING A ROOMING-IN PARENT.
--- NOTE | 2018-09-06 14:00 | NUR ---
CARING FOR INFANT IN ROOM.
[2018-09-06 15:00] VITALS: BP 118/70
[2018-09-06 16:00] VITALS: BP 118/70
--- NOTE | 2018-09-06 16:00 | NUR ---
DISMISSED FROM WS TO ROOMING-IN PARENT IN STABLE CONDITION. REMAINS A PT IN THE HOSPITAL.
== END 2018-09-06 16:00 | disposition home or self-care (01) | DRG 806 ==
LOC: WSo 14:52 → LDRP 14:52 → WSo 15:09 → LDRP 15:10
PROVIDERS: ADMIT Obstetrics & Gynecology; ATTEND Obstetrics & Gynecology
PROC: 10E0XZZ Delivery of Products of Conception, External Approach (ICD-10-PCS; principal; 2018-09-05)
PROC: 0W8NXZZ Division of Female Perineum, External Approach (ICD-10-PCS; 2018-09-05)
DX: O90.81 Anemia of the puerperium (principal); D62 Acute posthemorrhagic anemia; Z37.0 Single live birth; Z3A.39 39 weeks gestation of pregnancy
CPT/HCPCS: 36415; 85025; 86850; 86900; 86901; 99212

== ENCOUNTER → 2020-12-13 | Outpatient (CLI) | payer BC, OTHER ==
[~2020-12-13] MED LIST changes: +ACHD5005 PO; +Benzocaine/Menthol TP; +DIBU30OI TOP; +DOCU100C37 PO; +FERR325T18 PO; +IBUP-844 PO
--- NOTE | 2020-12-13 11:54 | Diagnostic Imaging Report ---
INDICATION: survey. TECHNIQUE: Multiple real-time grayscale images were obtained over the gravid uterus. COMPARISON: None FINDINGS: There is a single live fetus in a cephalic presentation. heart rate was recorded at 150 bpm. Placenta is anterior. MIP fluid index is 22 cm. Cervical length is 4.6 cm. Left kidney does show some minimal prominence of the renal pelvis measuring 4 mm. bladder and stomach are unremarkable. The brain is unremarkable. There is a four-chamber heart. There is a three-vessel cord with normal insertion. spine imaging is somewhat limited due to position. Biometrical measurements are as follows: Biparietal 7.21 cm, age 29 weeks 0 days. Head circumference 25.92 cm, age 28 weeks 2 days. Abdominal circumference 23.65 cm, age 28 weeks 0 days. Femur length 5.22 cm, age 27 weeks 6 days. Sonographic estimate age: 28 weeks 2 days. Sonographic estimated date of delivery: 03/05/2021. Estimated Weight: 1159 gm (+/- 169 gm). LMP percentile: ???%. heart rate: 150 beats per minute. number: 1 of 1. IMPRESSION: Single live IUP 28 weeks 2 days gestational age with estimated date of confinement sonographically of 03/05/2021. Dictated by: Dictated on workstation # [id number]
== END ==
LOC: RAD 10:00
PROVIDERS: ATTEND Obstetrics & Gynecology
DX: Z34.03 Encounter for supervision of normal first pregnancy, third trimester (principal); Z3A.28 28 weeks gestation of pregnancy
CPT/HCPCS: 76805

== ENCOUNTER 2021-02-25 11:28 | Inpatient (IN) | payer BC ==
[~2021-02-25] VITALS: Ht 177.8 cm; Wt 98.4 kg
[2021-02-25] VITALS (8 sets, daily range): BP systolic 85–139; BP diastolic 50–85
[2021-02-25] MEDS ORDERED: NS IV 500 ML 500 ML IV ONE (12:15)
[2021-02-25 12:29] LABS: BASOPHILS % (AUTO) 0 % (0-10); EOSINOPHILS # (AUTO) 0.1 10^3/uL (0.0-0.3); EOSINOPHILS % (AUTO) 1 % (0-10); HEMATOCRIT 35 % (35-52); HEMOGLOBIN 12.2 g/dL (11.5-16.0); LYMPHOCYTES # (AUTO) 1.4 10^3/uL (1.0-4.0); LYMPHOCYTES % (AUTO) 21 % (12-44); MEAN CORPUSCULAR HEMOGLOBIN 30 pg (25-34); MEAN CORPUSCULAR HGB CONC 35 g/dL (32-36); MEAN CORPUSCULAR VOLUME 86 fL (80-99); MONOCYTES # (AUTO) 0.6 10^3/uL (0.0-1.0); MONOCYTES % (AUTO) 8 % (0-12); NEUTROPHILS # (AUTO) 4.8 10^3/uL (1.8-7.8); NEUTROPHILS % (AUTO) 70 % (42-75); PLATELET COUNT 208 10^3/uL (130-400); WHITE BLOOD COUNT 6.9 10^3/uL (4.3-11.0)
[2021-02-25 12:39] LABS: ALBUMIN 3.1 GM/DL (3.2-4.5); POTASSIUM 2.7 MMOL/L (3.6-5.0)
[2021-02-25 12:40] LABS: CALCIUM 8.8 MG/DL (8.5-10.1)
[2021-02-25 12:43] LABS: BILIRUBIN,TOTAL 0.8 MG/DL (0.1-1.0)
[2021-02-25 12:45] LABS: CREATININE SERUM 0.7 MG/DL (0.60-1.30)
[2021-02-25 12:48] LABS: URIC ACID 5.4 MG/DL (2.6-7.2)
[2021-02-25] MEDS: D5 LR IV SOLUTION 1,000 ML IV SCH ×2 (12:51→19:18)
[2021-02-25] MEDS: POTASSIUM CL 10MEQ/50ML IVPB 50 ML IV SCH ×4 (14:36→19:41)
--- NOTE | 2021-02-25 16:27 | Diagnostic Imaging Report ---
INDICATION: Maternal hypotension. TECHNIQUE: Multiple Real-time grayscale images were obtained over the gravid uterus. COMPARISON: 12/13/2020. FINDINGS: There is a single live fetus in cephalic presentation. The heart rate was recorded at 127 BPM. The amniotic fluid volume is elevated at approximately 32 mL. The biophysical profile score is normal at 8 out of 8. Biometrical measurements are as follows: Biparietal 9.88 cm, age 40 weeks 4 days. Head circumference 37.14 cm, age weeks days. Abdominal circumference 35.58 cm, age 39 weeks 4 days. Femur length 7.26 cm, age 37 weeks 2 days. Sonographic estimate age: 39 weeks 1 days. Sonographic estimated date of delivery: 03/03/2021. Estimated Weight: 3859 gm (+/- 564 gm). LMP percentile: 85%. heart rate: 127 beats per minute. number: 1 of 1. IMPRESSION: Single live IUP of approximately 39 weeks gestational age showing normal interval growth when compared with the prior ultrasound. The biophysical profile score is normal at 8 out of 8. Note is made of an elevated amniotic fluid volume of 32 cm, consistent with polyhydramnios. Dictated by: Dictated on workstation # [id number]
[2021-02-25] MEDS ORDERED: TERBUTALINE INJ 1 MG/ML (BRETHINE) AMP SC PRN (18:00)
[2021-02-25] MEDS ORDERED: FLU QUADRIvalent (3YOA+) 60 mcg/0.5 ml 2021-22(AFLURIA) IM ONE (18:45)
[2021-02-26] VITALS (59 sets, daily range): BP systolic 106–164; BP diastolic 58–91
[2021-02-26] MEDS: D5 LR IV SOLUTION 1,000 ML IV SCH ×2 (03:19→10:21)
--- NOTE | 2021-02-26 08:47 | History & Physical-OB ---
OB - Chief Complaint & HPI Date/Time Date of Admission: Date of Admission: Feb 25, 2021 at 5:04 pm Date seen by a Provider: Feb 26, 2021 Time Seen by a Provider: 07:15 Chief Complaint/History OB-Reason for Admission/Chief: Induction of Labor Hx : 2 Hx Para: 1 Expected Date of Delivery: Mar 05, 2021 Gestational Age in Weeks: 39 Gestational Age in Days: 0 Indication for induction: medical complication Other reason for admission: Patient sent from office yesterday after hypotensive/syncopal episode, followed by diaphoresis and decreased movement. At admission she was given IVF bolus, and hypotension resolved, however urine protein cr ratio was elevation, decision due to 39 weeks was made to deliver. Admission Nurse Assessment Rev: Yes Allergies and Home Medications Allergies Coded Allergies: No Known Drug Allergies (Unverified , 05/06/18) Patient Home Medication List Home Medication List Reviewed: Yes Dibucaine (Dibucaine) 30 Gm Oint, 0 GM TOP UD PRN for PAIN- SEE INSTRUCTIONS Prescribed by: BRITTANY MCCRACKEN on 09/05/182219 Docusate Sodium (Docusate Sodium) 100 Mg Capsule, 100 MG PO BID PRN for CONSTIPATION-1ST LINE Prescribed by: BRITTANY MCCRACKEN on 09/05/182219 Ferrous Sulfate (Ferrous Sulfate) 325 Mg Tablet, 325 MG PO DAILY Prescribed by: BRITTANY MCCRACKEN on 09/05/182219 Hydrocodone Bit/Acetaminophen (Lortab 5 Mg Tablet) 1 Tab Tab, 1 TAB PO Q4H PRN for PAIN-MODERATE Prescribed by: BRITTANY MCCRACKEN on 09/05/182219 Ibuprofen (Ibu) 600 Mg Tablet, 600 MG PO Q6HR Prescribed by: BRITTANY MCCRACKEN on 09/05/182219 Vit #76/Iron,Carb/FA (Pnv 29-1 Tablet) 1 Each Tablet, 1 EACH PO DAILY, (Reported) Entered as Reported by: TRES SMITH on 09/03/18 0749 [Benzocaine/Menthol] 56 ML AEROSOL, 56 ML TP UD PRN for PAIN- SEE INSTRUCTIONS Prescribed by: BRITTANY MCCRACKEN on 09/05/182219 OB - History Hx of Present Care: Yes (late care) Ultrasounds: Normal mid trimester US Obstetrical Complications: None Medical Complications: None Delivery History Adverse Rxn to Tranfusion: No (N/A) Patient Past Medical History n/a Social History/Family History 2nd Hand Smoke Exposure: No Immunizations Influenza Vaccine Up-to-Date: No; Not Current First/Initial COVID19 Vaccine: July 2020 Second COVID19 Vaccination: Mid August 2020 COVID19 Vaccine Sound Tester: Bharathpadmaja Hepatitis A: Yes Hepatitis B: Yes OB - Admission Exam Physical Exam Vitals: Vital Signs 02/25/21 02/25/21 02/26/21 02/26/21 11:50 13:05 05:00 07:00 Temp 37.0 Pulse 87 Resp 18 B/P (MAP) 136/91 (106) Pulse Ox 100 O2 Delivery Room Air HEENT: NCAT Heart: Rhythm Normal Lungs: Clear Abdomen: Gravid Extremities: Normal Reflexes: Normal Cervical Dilatation: 2cm Effacement: 75% Station: -1 Membranes: Intact Heart Rate: 130's Accelerations: Accelerations Present Decelerations: No Decelerations Short Term Variability: Present Half-Way Variability: Average (6-25) Contractions on Admission: >10 Minutes Apart Intensity: Mild Labs Laboratory Tests Test 02/25/21 12:10 02/25/21 14:30 Range/Units White Blood Count 6.9 4.3-11.0 10^3/uL Red Blood Count 4.10 3.80-5.11 10^6/uL Hemoglobin 12.2 11.5-16.0 g/dL Hematocrit 35 35-52 % Mean Corpuscular Volume 86 80-99 fL Mean Corpuscular Hemoglobin 30 25-34 pg Mean Corpuscular Hemoglobin Concent 35 32-36 g/dL Red Cell Distribution Width 12.9 10.0-14.5 % Platelet Count 208 130-400 10^3/uL Mean Platelet Volume 12.0 9.0-12.2 fL Immature Granulocyte % (Auto) 0 % Neutrophils (%) (Auto) 70 42-75 % Lymphocytes (%) (Auto) 21 12-44 % Monocytes (%) (Auto) 8 0-12 % Eosinophils (%) (Auto) 1 0-10 % Basophils (%) (Auto) 0 0-10 % Neutrophils # (Auto) 4.8 1.8-7.8 10^3/uL Lymphocytes # (Auto) 1.4 1.0-4.0 10^3/uL Monocytes # (Auto) 0.6 0.0-1.0 10^3/uL Eosinophils # (Auto) 0.1 0.0-0.3 10^3/uL Basophils # (Auto) 0.0 0.0-0.1 10^3/uL Immature Granulocyte # (Auto) 0.0 0.0-0.1 10^3/uL Sodium Level 139 135-145 MMOL/L Potassium Level 2.7 L 3.6-5.0 MMOL/L Chloride Level 104 98-107 MMOL/L Carbon Dioxide Level 22 21-32 MMOL/L Anion Gap 13 5-14 MMOL/L Blood Urea Nitrogen 5 L 7-18 MG/DL Creatinine 0.70 0.60-1.30 MG/DL Estimat Glomerular Filtration Rate 100 BUN/Creatinine Ratio 7 Glucose Level 123 H 70-105 MG/DL Uric Acid 5.4 2.6-7.2 MG/DL Calcium Level 8.8 8.5-10.1 MG/DL Corrected Calcium 9.5 8.5-10.1 MG/DL Total Bilirubin 0.8 0.1-1.0 MG/DL Aspartate Amino Transf (AST/SGOT) 23 5-34 U/L Alanine Aminotransferase (ALT/SGPT) 16 0-55 U/L Alkaline Phosphatase 222 H 40-136 U/L Total Protein 6.0 L 6.4-8.2 GM/DL Albumin 3.1 L 3.2-4.5 GM/DL Urine Protein 147 H 6-12 MG/DL Urine Creatinine 105 30-125 MG/DL Urine Protein/Creatinine Ratio 1.40 OB - Assessment/Plan/Diagnosis Assessment Assessment: induction of labor Admission Dx 26 yo @ 39 weeks Mild preeclampsia s/p Syncopal hypotensive episode GBS neg Admission Status: Inpatient Order (span 2 midnights) Reason for Inpatient Admission: IOL at 39 weeks Plan Plan: Induction Induction Method: per Misoprostol Protocol BRITTANY MCCRACKEN DO Feb 26, 2021 8:47 am
[2021-02-26] MEDS ORDERED: OXYTOCIN PRE-MIX DRIP 500 ML IV SCH ×2 (09:00)
[2021-02-26] MEDS ORDERED: fentaNYL 2 mcg/ml BUPIVA 0.125 100 ML ONE (10:20)
[2021-02-26] MEDS ORDERED: fentaNYL INJ 100 MCG/2 ML AMP ONE (10:29)
[2021-02-26] MEDS ORDERED: BUPIVACAINE 0.25% 30 ML (SENSORCAINE) VIAL ONE (10:29)
[2021-02-26] MEDS: OXYTOCIN PRE-MIX DRIP 500 ML IV SCH ×2 (16:16→16:45)
[2021-02-26] MEDS ORDERED: DIBUCAINE 1% OINTMENT 30 GM TUBE TOP PRN (16:30)
[2021-02-26] MEDS ORDERED: TETANUS,DIPTH,PERTUSS P/F (BOOSTRIX) 0.5 ML VIAL IM ONE (16:30)
[2021-02-26] MEDS ORDERED: HYDROcodone/APAP 5 MG/325 MG (LORTAB) TAB PO PRN ×2 (16:30→16:45)
[2021-02-26] MEDS ORDERED: BENZOCAINE/MENTHOL (DERMOPLAST) 56 ML CAN TP PRN (16:30)
[2021-02-26] MEDS ORDERED: NALOXONE 0.4 MG/ML 1 ML (NARCAN) VIAL IV PRN (16:30)
[2021-02-26] MEDS ORDERED: MEASLES,MUMPS,RUBELLA 1 EA INJ SQ ONE (16:30)
[2021-02-26] MEDS ORDERED: WITCH HAZEL(TUCKS) 40 EA JAR TOP PRN (16:30)
--- NOTE | 2021-02-26 16:35 | OB Labor & Delivery Record ---
L&D History Date of Service Date of Service: Feb 26, 2021 History Expected Date of Delivery: Mar 05, 2021 Gestational Age in Weeks: 39 Hx : 2 Hx Para: 1 Complications Events: Routine care Operative Indications (Cesarea: N/A-Vaginal Delivery Intrapartal Events: Mild Preeclampsia L&D Stage1 Stage One Onset of Labor - Date: Feb 26, 2021 Monitors and Tracing Monitor Mode: External Heart Rate: 110 Monitor Decelerations: Variable Station: -2 Math Professor Variability: Average (6-10) Short Term Variability: Present Presentation: Vertex Vital Signs VS - Last 72 Hours, by Label 02/25/21 02/25/21 02/25/21 02/25/21 11:40 11:50 12:25 13:05 Temp 36.0 Pulse 130 118 86 98 Resp 18 18 B/P (MAP) 89/54 (66) 130/76 (94) 101/60 (74) Pulse Ox 99 98 100 100 O2 Delivery Room Air Room Air 02/25/21 02/25/21 02/25/21 02/25/21 14:40 16:15 22:00 23:00 Temp 35.6 36.7 36.5 Pulse 74 78 109 86 Resp 18 18 B/P (MAP) 139/82 (101) 135/81 (99) 138/85 (102) 133/77 (95) 02/26/21 02/26/21 02/26/21 02/26/21 00:00 01:00 02:00 03:00 Pulse 81 80 78 76 Resp 18 18 18 18 B/P (MAP) 124/61 (82) 117/68 (84) 133/85 (101) 113/58 (76) 02/26/21 02/26/21 02/26/21 02/26/21 04:00 05:00 06:00 07:00 Temp 36.8 37.0 Pulse 86 76 75 87 Resp 18 18 18 18 B/P (MAP) 130/80 (97) 126/80 (95) 130/84 (99) 136/91 (106) 02/26/21 02/26/21 02/26/21 02/26/21 07:20 08:00 08:20 09:15 Temp 36.4 Pulse 78 77 88 Resp 18 18 18 B/P (MAP) 131/81 (98) 140/87 (104) 139/91 (107) O2 Delivery Room Air Room Air Room Air 02/26/21 02/26/21 02/26/21 02/26/21 09:30 09:45 10:00 10:15 Pulse 73 77 73 75 Resp 18 18 18 18 B/P (MAP) 133/81 (98) 130/81 (97) 134/78 (96) 133/79 (97) O2 Delivery Room Air Room Air Room Air Room Air 02/26/21 02/26/21 02/26/21 02/26/21 10:30 10:40 10:45 10:50 Pulse 77 75 79 78 Resp 18 18 18 18 B/P (MAP) 138/86 (103) 128/72 (90) 129/76 (93) 132/84 (100) Pulse Ox 100 98 100 O2 Delivery Room Air Room Air Room Air Room Air 02/26/21 02/26/21 02/26/21 02/26/21 10:55 11:00 11:05 11:10 Pulse 95 125 86 71 Resp 18 18 18 18 B/P (MAP) 133/85 (101) 127/80 (96) 134/75 (94) 123/72 (89) Pulse Ox 100 100 98 98 O2 Delivery Room Air Room Air Room Air Room Air 02/26/21 02/26/21 02/26/21 02/26/21 11:15 11:20 11:25 11:30 Pulse 78 76 76 83 Resp 18 18 18 18 B/P (MAP) 127/73 (91) 121/74 (90) 129/76 (93) 135/61 (85) Pulse Ox 99 98 99 94 O2 Delivery Room Air Room Air Room Air Room Air 02/26/21 02/26/21 02/26/21 02/26/21 11:35 11:40 11:45 11:50 Pulse 67 65 65 71 Resp 18 18 18 18 B/P (MAP) 127/68 (87) 126/67 (86) 123/67 (85) 124/73 (90) Pulse Ox 100 98 100 99 O2 Delivery Room Air Room Air Room Air Room Air 02/26/21 02/26/21 02/26/21 02/26/21 12:00 12:15 12:30 12:45 Temp 36.1 Pulse 65 98 71 81 Resp 18 18 18 18 B/P (MAP) 123/67 (85) 116/65 (82) 106/61 (76) 125/70 (88) Pulse Ox 100 98 98 100 O2 Delivery Room Air Room Air Room Air Room Air 02/26/21 02/26/21 02/26/21 02/26/21 13:00 13:15 13:30 13:45 Pulse 64 73 66 66 Resp 18 18 18 18 B/P (MAP) 119/75 (90) 119/75 (90) 115/63 (80) 120/70 (87) Pulse Ox 99 100 98 99 O2 Delivery Room Air Room Air Room Air Room Air 02/26/21 02/26/21 02/26/21 14:00 14:15 14:30 Temp 36.5 Pulse 67 69 67 Resp 18 18 18 B/P (MAP) 115/70 (85) 121/67 (85) 121/68 (85) Pulse Ox 100 99 98 O2 Delivery Room Air Room Air Room Air Rupture of Membranes Spontaneous Ruture of Membrane: No Amniotic Membrane Rupture Time: 0709 Amniotic Membrane Fluid Desc.: Clear Vaginal Bleeding Description: Normal Show Induction/Anesthesia Epidural Cath Placement - Time: 1045 Progress/Notes Patient started on misoprostol PO overnight and converted to AROM and Pitocin this AM. Epidural received and she progressed to complete and +2 station. L&D Stage2 Stage Two Stage II Date: Feb 26, 2021 Monitors and Tracing Monitor Mode: External Heart Rate: 110 Monitor Decelerations: Variable Longterm Variability: Average (6-10) Short Term Variability: Present Position: Right Occiput Anterior Presentation: Vertex Cord Descript/Complications Cord Vessel Description: 3 Vessels Delivery Type Infant Delivery Method: Spontaneous Vaginal Anterior Shoulder: Left (compound presentation) Episiotomy/Perineal Laceration Laceraction(s)/Extensions: Yes Degree (describe repair) bilateral labial lacerations and 1st degree vaginal laceration repaired using 3- 0 rapide in usual fashion Condition of Infant Delivery 1 minute Comment: 8 5 minute Comment: 9 Notes Live male weight pending Condition of Condition of Infant: Living Exam: No Observed Abnormalities Resuscitation Resuscitation: N/A - Spontaneous Resp L&D Stage3 Stage Three Stage III Date: Feb 26, 2021 Pictocin Pitocin Administration mu/min: 8 Pitocin ml/hr: 8 Pitocin Administration Comment: 30 mu wide open after delivery of placenta Placenta Delivery Placenta Delivery: Spontaneous Delivery Summary Summary Estimated blood loss (mL): 350 Attending at delivery: Brittany Mccracken DO Condition of Delivery Examined: Cervix Examined, Uterus Explored Post Hemorrhage: No Condition of Mother stable Condition of Infant (s) stable BRITTANY MCCRACKEN DO Feb 26, 2021 4:35 pm
--- NOTE | 2021-02-26 17:34 | Diagnostic Imaging Report ---
REASON FOR EXAM: Evaluate for IUD. COMPARISON: None TECHNIQUE: frontal supine view of the abdomen FINDINGS: The bowel gas pattern is nondistended. No large collection of free intraperitoneal air is seen. Scattered small amounts of gas and fecal material are present in the colon. No abnormal extraosseous calcifications are present. An IUD is not identified. The osseous structures are age-appropriate. IMPRESSION: 1. No radiographic evidence of IUD. 2. No evidence of bowel obstruction or large collection of free intraperitoneal air. Dictated by: Dictated on workstation # [id number]
[2021-02-26] MEDS: IBUPROFEN 600 MG (MOTRIN) TAB PO SCH (18:25)
[2021-02-26] MEDS: DOCUSATE SODIUM 100 MG (COLACE) CAP PO SCH (19:44)
[2021-02-27 04:30] VITALS: BP 117/66
[2021-02-27] MEDS: IBUPROFEN 600 MG (MOTRIN) TAB PO SCH ×4 (05:43→19:13)
[2021-02-27 05:51] LABS: BASOPHILS % (AUTO) 0 % (0-10); EOSINOPHILS # (AUTO) 0.1 10^3/uL (0.0-0.3); EOSINOPHILS % (AUTO) 1 % (0-10); HEMATOCRIT 29 % (35-52); HEMOGLOBIN 9.9 g/dL (11.5-16.0); LYMPHOCYTES # (AUTO) 3.1 10^3/uL (1.0-4.0); LYMPHOCYTES % (AUTO) 23 % (12-44); MEAN CORPUSCULAR HEMOGLOBIN 30 pg (25-34); MEAN CORPUSCULAR HGB CONC 34 g/dL (32-36); MEAN CORPUSCULAR VOLUME 87 fL (80-99); MEAN PLATELET VOLUME 11.8 fL (9.0-12.2); MONOCYTES % (AUTO) 7 % (0-12); NEUTROPHILS # (AUTO) 9.2 10^3/uL (1.8-7.8); NEUTROPHILS % (AUTO) 68 % (42-75); PLATELET COUNT 175 10^3/uL (130-400); WHITE BLOOD COUNT 13.4 10^3/uL (4.3-11.0)
[2021-02-27 06:09] LABS: ALBUMIN 2.5 GM/DL (3.2-4.5); POTASSIUM 3.1 MMOL/L (3.6-5.0)
[2021-02-27 06:10] LABS: CALCIUM 8.3 MG/DL (8.5-10.1)
[2021-02-27 06:11] LABS: TOTAL PROTEIN 4.8 GM/DL (6.4-8.2)
[2021-02-27 06:13] LABS: BILIRUBIN,TOTAL 0.4 MG/DL (0.1-1.0)
[2021-02-27 06:15] LABS: CREATININE SERUM 0.69 MG/DL (0.60-1.30)
[2021-02-27] MEDS: FERROUS SULF 325 MG (IRON) TAB PO SCH (08:56)
[2021-02-27] MEDS: PRENATAL VITAMIN 1 EA TAB PO SCH (08:56)
[2021-02-27] MEDS: DOCUSATE SODIUM 100 MG (COLACE) CAP PO SCH ×2 (08:56→19:13)
[2021-02-27 08:58] VITALS: BP 119/71
--- NOTE | 2021-02-27 14:41 | Anesthesia-Regional Post-Op ---
Regional Patient Condition Mental Status: Alert, Oriented x3 Circulation: Same as Pre-Op Headache: Absent Sensation: Full Recovery Motor Block: Absent Post Op Complications Complications None Follow Up Care/Instructions Patient Instructions None needed. Anesthesia/Patient Condition Patient is doing well, no complaints, stable vital signs, no apparent adverse anesthesia problems. No complications reported per nursing. ERICK LOU CRNA Feb 27, 2021 14:41
[2021-02-27 16:34] VITALS: BP 138/82
--- NOTE | 2021-02-27 17:00 | Postpartum Progress Note ---
Note Note Day # 1 Subjective: Patient is without complaints. Ambulating, voiding. Tolerating a regular diet without nausea or vomiting. Normal lochia. Pain is well controlled with oral pain medications. Objective: Physical Exam: General - Alert and oriented, no apparent distress Abdomen - Soft, appropriately tender to palpation, non-distended, fundus firm at umbilicus Extremities - no edema, negative Isaak's bilaterally Assessment: Post- day # 1, status post vaginal delivery. Recovering well, hemodynamically stable Acute blood loss anemia Hypokalemia Plan: Routine care. Encourage breast feeding. Encourage ambulation. Ferrous sulfate supplementation. Plan for discharge tomorrow Vitals - Labs Vital Signs - I&O Vital Signs Date Time Temp Pulse Resp B/P (MAP) Pulse Ox O2 Delivery O2 Flow Rate FiO2 02/27/21 08:58 36.3 84 18 119/71 (87) 99 Room Air 02/27/21 04:30 36.2 83 18 117/66 (83) 99 Room Air 02/26/21 23:59 36.4 80 18 120/65 (83) 97 Room Air 02/26/21 21:45 36.8 104 18 133/63 (86) Room Air 02/26/21 18:15 112 18 122/67 (85) Room Air 02/26/21 18:00 98 18 121/62 (81) Room Air 02/26/21 17:45 96 18 131/67 (88) Room Air 02/26/21 17:30 99 18 120/66 (84) Room Air 02/26/21 17:15 104 18 124/65 (84) Room Air 02/26/21 17:00 114 18 117/62 (80) Room Air I & O 02/27/21 06:59 Intake Total 2000 ml Balance 2000 ml Labs Laboratory Tests 02/27/21 05:27: White Blood Count 13.4H, Red Blood Count 3.36L, Hemoglobin 9.9L, Hematocrit 29L, Mean Corpuscular Volume 87, Mean Corpuscular Hemoglobin 30, Mean Corpuscular Hemoglobin Concent 34, Red Cell Distribution Width 13.2, Platelet Count 175, Mean Platelet Volume 11.8, Immature Granulocyte % (Auto) 1, Neutrophils (%) (Auto) 68, Lymphocytes (%) (Auto) 23, Monocytes (%) (Auto) 7, Eosinophils (%) (Auto) 1, Basophils (%) (Auto) 0, Neutrophils # (Auto) 9.2H, Lymphocytes # (Auto) 3.1, Monocytes # (Auto) 1.0, Eosinophils # (Auto) 0.1, Basophils # (Auto) 0.0, Immature Granulocyte # (Auto) 0.1, Sodium Level 138, Potassium Level 3.1L, Chloride Level 107, Carbon Dioxide Level 21, Anion Gap 10, Blood Urea Nitrogen 6L, Creatinine 0.69, Estimat Glomerular Filtration Rate 102, BUN/Creatinine Ratio 9, Glucose Level 78, Calcium Level 8.3L, Corrected Calcium 9.5, Total Bilirubin 0.4, Aspartate Amino Transf (AST/SGOT) 29, Alanine Aminotransferase (ALT/SGPT) 16, Alkaline Phosphatase 188H, Total Protein 4.8L, Albumin 2.5L YARELI WYNNE APRN Feb 27, 2021 17:00
[2021-02-27] MEDS: D5 LR IV SOLUTION 1,000 ML IV SCH ×2 (23:36→23:38)
[2021-02-27] MEDS: CATHETER FLUSH 10 ML SYR IV SCH ×2 (23:36→23:38)
[2021-02-28 00:31] VITALS: BP 126/71
[2021-02-28] MEDS: IBUPROFEN 600 MG (MOTRIN) TAB PO SCH ×2 (00:31→06:46)
[2021-02-28] MEDS: D5 LR IV SOLUTION 1,000 ML IV SCH (04:32)
[2021-02-28] MEDS: CATHETER FLUSH 10 ML SYR IV SCH (05:44)
[2021-02-28 06:45] VITALS: BP 130/80
[2021-02-28] MEDS: PRENATAL VITAMIN 1 EA TAB PO SCH (06:46)
--- NOTE | 2021-02-28 08:09 | Discharge Inst-Women's Service ---
Discharge Inst-Women's Serv Depart Medication/Instructions New, Converted or Re-Newed RX: Transmitted to Pharmacy Final Diagnosis PPD 2 NVD Hypokalemia Problems Reviewed?: Yes Consults/Follow Up Additional Follow Up: Yes Orders/Referrals Dr. Mccracken in 6 weeks Activity Activity: Activity as Tolerated Driving Instructions: No Driving for 1 Week NO SMOKING: NO SMOKING Nothing Inside Vagina: No Douching, No [place], No Tampons Diet Discharge Diet: No Restrictions Symptoms to Report to : Bleeding Excessive, Pain Increased, Fever Over 101 Degrees F, Vaginal Bleeding Increase, Questions/Concerns For Any Problems or Questions: Contact Your Physician BRITTANY MCCRACKEN DO Feb 28, 2021 08:09
[2021-02-28] MEDS ORDERED: PNV1TABL67 PO (08:12)
[2021-02-28] MEDS ORDERED: IBUP-844 PO (08:12)
[2021-02-28] MEDS ORDERED: BENZ78AE5 TP (08:12)
[2021-02-28] MEDS ORDERED: FERR325T24 PO (08:12)
[2021-02-28] MEDS ORDERED: ACHD5005 PO (08:12)
[2021-02-28] MEDS ORDERED: DOCU100C37 PO (08:12)
--- NOTE | 2021-02-28 08:13 | Postpartum Progress Note ---
Note Note Day # 2 Subjective: Patient is without complaints. Ambulating, voiding. Tolerating a regular diet without nausea or vomiting. Normal lochia. Pain is well controlled with oral pain medications. Objective: Physical Exam: General - Alert and oriented, no apparent distress Abdomen - Soft, appropriately tender to palpation, non-distended, fundus firm at umbilicus Extremities - no edema, negative Isaak's bilaterally Assessment: PPD 2 NVD Acute blood loss anemia Hypokalemia Plan: Routine care. Potassium OTC supplement recommended Encourage breast feeding. Encourage ambulation. Ferrous sulfate supplementation. Plan for discharge today Vitals - Labs Vital Signs - I&O Vital Signs Date Time Temp Pulse Resp B/P (MAP) Pulse Ox O2 Delivery O2 Flow Rate FiO2 02/28/21 06:45 36.4 88 18 130/80 (97) 100 Room Air 02/28/21 00:31 36.5 78 18 126/71 (89) 100 Room Air 02/27/21 16:34 36.5 72 18 138/82 (100) 100 Room Air 02/27/21 08:58 36.3 84 18 119/71 (87) 99 Room Air BRITTANY MCCRACKEN DO Feb 28, 2021 08:13
[2021-02-28 08:46] VITALS: BP 129/74
[2021-02-28] MEDS: DOCUSATE SODIUM 100 MG (COLACE) CAP PO SCH (08:47)
[2021-02-28] MEDS: FERROUS SULF 325 MG (IRON) TAB PO SCH (08:48)
[2021-02-28 11:50] VITALS: BP 129/74
== END 2021-02-28 11:50 | disposition home or self-care (01) | DRG 806 ==
LOC: WSo 11:28 → LDRP 11:28 → WSo 12:09 → LDRP 17:04 → WSo 17:04 → LDRP 02-26 18:30
PROVIDERS: ADMIT Obstetrics & Gynecology; ATTEND Obstetrics & Gynecology
PROC: 3E0DXGC Introduction of Other Therapeutic Substance into Mouth and Pharynx, External Approach (ICD-10-PCS; 2021-02-25)
PROC: 10E0XZZ Delivery of Products of Conception, External Approach (ICD-10-PCS; principal; 2021-02-26)
PROC: 0HQ9XZZ Repair Perineum Skin, External Approach (ICD-10-PCS; 2021-02-26)
DX: O14.04 Mild to moderate pre-eclampsia, complicating childbirth (principal); D62 Acute posthemorrhagic anemia; Z37.0 Single live birth; O70.0 First degree perineal laceration during delivery; O90.81 Anemia of the puerperium; O99.283 Endocrine, nutritional and metabolic diseases complicating pregnancy, third trimester; E87.6 Hypokalemia; O32.6XX0 Maternal care for compound presentation, not applicable or unspecified; Z3A.39 39 weeks gestation of pregnancy; Z23 Encounter for immunization
CPT/HCPCS: 36415; 74018; 76805; 76819; 80053; 82570; 84156; 84550; 85025

== ENCOUNTER → 2022-10-19 | Outpatient (CLI) | payer BC ==
[~2022-10-19] MED LIST changes: +BENZ78AE5 TP; +FERR325T24 PO; +IBUP-1773 PO; +PNV1TABL67 PO
[2022-10-19 15:09] LABS: FREE T4 (FREE THYROXINE) 0.92 NG/DL (0.70-1.48)
== END ==
LOC: LAB FS 13:09
PROVIDERS: ATTEND Obstetrics & Gynecology Reproductive Endocrinology
DX: E03.9 Hypothyroidism, unspecified (principal)
CPT/HCPCS: 36415; 84439; 84443; 86376

== ENCOUNTER → 2023-02-08 | Outpatient (CLI) | payer BC | LOC: LAB 06:40 | PROVIDERS: ATTEND Obstetrics & Gynecology Reproductive Endocrinology | DX: Z32.00 Encounter for pregnancy test, result unknown (principal) | CPT/HCPCS: 36415; 84144; 84702 ==

== ENCOUNTER → 2023-02-10 | Outpatient (CLI) | payer BC | LOC: LAB 05:05 | PROVIDERS: ATTEND Obstetrics & Gynecology Reproductive Endocrinology | DX: Z32.01 Encounter for pregnancy test, result positive (principal) | CPT/HCPCS: 36415; 84144; 84702 ==

== ENCOUNTER → 2023-02-15 | Outpatient (CLI) | payer BC | LOC: LAB 05:06 | PROVIDERS: ATTEND Obstetrics & Gynecology Reproductive Endocrinology | DX: O09.811 Supervision of pregnancy resulting from assisted reproductive technology, first trimester (principal) | CPT/HCPCS: 36415; 84144 ==

== ENCOUNTER → 2023-02-18 | Outpatient (CLI) | payer BC | LOC: LAB 04:51 | PROVIDERS: ATTEND Obstetrics & Gynecology Reproductive Endocrinology | DX: O09.811 Supervision of pregnancy resulting from assisted reproductive technology, first trimester (principal); Z3A.00 Weeks of gestation of pregnancy not specified | CPT/HCPCS: 36415; 84144 ==